=== PATIENT | male | born 1985 | race Hispanic/Latino ===

== ENCOUNTER 2019-03-06 08:30 | Emergency (ER) | payer OTHER ==
[2019-03-06] MEDS ORDERED: IBUPROFEN 400 MG TABLET ONE (09:15)
[2019-03-06] MEDS ORDERED: TETANUS/DIPHTHERIA TOXOID [ADULT] 0.5 ML VIAL IM ONE (09:16)
[2019-03-06] MEDS ORDERED: AMOXICILLIN/POTASSIUM CLAV 875-125 TABLET PO ONE (09:16)
== END 2019-03-06 09:38 | disposition home or self-care (01) ==
LOC: EDH 08:30
DX: S61.452A Open bite of left hand, initial encounter (principal); Z88.8 Allergy status to other drugs, medicaments and biological substances; Z72.0 Tobacco use; Z98.890 Other specified postprocedural states; W55.01XA Bitten by cat, initial encounter; Y93.89 Activity, other specified; Y92.89 Other specified places as the place of occurrence of the external cause; Y99.8 Other external cause status
CPT/HCPCS: 90471; 90714

== ENCOUNTER 2019-03-07 12:35 | Inpatient (IN) | payer OTHER | END 2019-03-11 13:45 | disposition home or self-care (01) | LOC: EDH 12:35 → EDHIP 16:55 → 3BH 19:06 | DX: L03.114 Cellulitis of left upper limb (principal); W55.01XA Bitten by cat, initial encounter; F43.12 Post-traumatic stress disorder, chronic; F19.10 Other psychoactive substance abuse, uncomplicated; F32.9 Major depressive disorder, single episode, unspecified ==

== ENCOUNTER 2020-08-12 11:18 | Emergency (ER) | payer OTHER ==
[2020-08-12] MEDS ORDERED: HYDROCODONE/ACETAMINOPHEN 5/325 MG TAB ONE (12:55)
== END 2020-08-12 15:52 | disposition home or self-care (01) ==
LOC: EDH 11:18
DX: S23.41XA Sprain of ribs, initial encounter (principal); S00.83XA Contusion of other part of head, initial encounter; M54.5 Low back pain; Y08.89XA Assault by other specified means, initial encounter; Y93.89 Activity, other specified; Y92.89 Other specified places as the place of occurrence of the external cause; Y99.8 Other external cause status
CPT/HCPCS: 70450; 71101; 72100; 72125